=== PATIENT | male | born 1975 | race Two or more races ===

== ENCOUNTER 2023-01-13 22:06 | Emergency (ER) | payer MEDICAID, OTHER ==
[~2023-01-13] VITALS: Ht 162.6 cm; Wt 97.5 kg
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
--- NOTE | 2023-01-13 22:50 | NUR ---
20G IV STARTED ON L AC. BLOOD COLLECTED SENT TO LAB
[2023-01-13] MEDS ORDERED: MORPHINE SULFATE INJ 2 MG/ML DISP.SYRIN ONE (22:53)
--- NOTE | 2023-01-13 22:53 | NUR ---
X-RAY AT BEDSIDE
[2023-01-13] MEDS ORDERED: MORPHINE SULFATE INJ 2 MG/ML DISP.SYRIN IV ONE (23:00)
--- NOTE | 2023-01-13 23:04 | NUR ---
PT TAKEN TO CT VIA [facility]
[2023-01-13] MEDS ORDERED: IOHEXOL-350 100 ML VIAL IV ONE ×2 (23:07→23:22)
[2023-01-13] MEDS ORDERED: IV NS 0.9% 250 ML IV ONE ×2 (23:07→23:24)
[2023-01-13] MEDS ORDERED: CT SWABBABLE VALVE TRANS SET 1 EA INFUS.SET MC ONE ×2 (23:07→23:22)
[2023-01-13 23:22] LABS: BASOPHILS # (AUTO) 0.1 K/uL (0.0-0.2); BASOPHILS % (AUTO) 0.8 % (0.0-2.0); EOSINOPHILS % (AUTO) 0.4 % (0.0-6.0); HEMATOCRIT 35 % (39-51); HEMOGLOBIN 10.9 g/dL (13.5-17.5); LYMPHOCYTES # (AUTO) 2.2 K/uL (0.8-4.8); LYMPHOCYTES % (AUTO) 16.2 % (20.0-44.0); MEAN CORPUSCULAR HGB CONC 31 g/dl (31.0-36.0); MEAN CORPUSCULAR VOLUME 90 fL (80-96); MONOCYTES % (AUTO) 7.4 % (2.0-12.0); NEUTROPHILS # (AUTO) 10.3 K/uL (1.8-8.9); NEUTROPHILS % (AUTO) 75.2 % (43.0-81.0); PLATELET COUNT (AUTO) 512 K/uL (150-450); RED BLOOD CELL COUNT(AUTO) 3.88 MIL/uL (4.5-6.0); WHITE BLOOD COUNT (AUTO) 13.8 K/uL (4.3-11.0)
--- NOTE | 2023-01-13 23:25 | NUR ---
PT RETURNED FROM CT
[2023-01-13 23:49] LABS: CALCIUM, SERUM 9.6 mg/dL (8.5-10.1); CARBON DIOXIDE 28 mmol/L (21-32); CHLORIDE 99 mmol/L (98-107); CREATININE 0.9 mg/dL (0.6-1.3); GLUCOSE 158 mg/dL (74-106); POTASSIUM 4.4 mmol/L (3.5-5.1); SODIUM SERUM 133 mmol/L (136-145); UREA NITROGEN, BLOOD 19 mg/dL (7-18)
[2023-01-13] MEDS ORDERED: ASPIRIN 325 MG TABLET ONE (23:49)
[2023-01-14] MEDS ORDERED: ASPIRIN 325 MG TABLET PO ONE
[2023-01-14 00:10] LABS: ALANINE AMINOTRANSFERASE 85 U/L (12-78); ALBUMIN 2.7 g/dL (3.4-5.0); ALKALINE PHOSPHATASE 221 U/L (46-116); ASPARTATE AMINOTRANSFERASE 27 U/L (15-37); BILIRUBIN,DIRECT 0.1 mg/dL (0.0-0.2); BILIRUBIN,TOTAL 0.4 mg/dL (0.2-1.0); TOTAL PROTEIN, SERUM 8.2 g/dL (6.4-8.2)
--- NOTE | 2023-01-14 00:44 | NUR ---
medically stable for discharge back to the facility per MD. [facility] ETA: 45-60 minutes
--- NOTE | 2023-01-14 00:53 | NUR ---
REPORT GIVEN TO MARLIN @[facility]
[2023-01-14] MEDS ORDERED: KETOROLAC TROMETHAMINE INJ 30 MG/ML VIAL ONE (00:55)
[2023-01-14] MEDS ORDERED: KETOROLAC TROMETHAMINE INJ 30 MG/ML VIAL IV ONE (01:00)
--- NOTE | 2023-01-14 01:19 | NUR ---
[facility] AT BEDSIDE TO [facility]ING [facility]
[2023-01-14 01:23] VITALS: BP 144/95
== END 2023-01-14 01:31 | disposition home or self-care (01) ==
LOC: ER 22:09
DX: R07.9 Chest pain, unspecified (principal); I10 Essential (primary) hypertension; E78.5 Hyperlipidemia, unspecified
CPT/HCPCS: 99285; 96374; 71275; 71045; 93005; 85025; 80048; 80076; 36415; 84484; 83880; 96375; J7050 ×2; J2270; Q9967 ×2; J1885